=== PATIENT | male | born 1965 | race Caucasian/White ===

== ENCOUNTER 2016-11-26 22:51 | Emergency (ER) | payer OTHER ==
[~2016-11-26] VITALS: Ht 185.4 cm; Wt 127.5 kg
[2016-11-26 23:09] VITALS: BP 129/81
[2016-11-26] MEDS ORDERED: OMNICEF300 MG PO (23:56)
[2016-11-26] MEDS ORDERED: MOTRIN800 MG PO (23:57)
[2016-11-27] MEDS ORDERED: LIPITOR10 MG PO (00:19)
== END 2016-11-27 00:21 | disposition home or self-care (01) ==
LOC: EME 22:51
DX: H66.91 Otitis media, unspecified, right ear (principal)
CPT/HCPCS: 99281; 99284